=== PATIENT | female | born 1975 | race African-American/Black ===

== ENCOUNTER 2017-05-23 00:06 | Emergency (ER) | payer MEDICAID, OTHER ==
[~2017-05-23] VITALS: Ht 170.2 cm; Wt 104.5 kg
[2017-05-23] MEDS ORDERED: KETOROLAC 30MG/ML VIAL IM ONE (01:15)
[2017-05-23 02:05] VITALS: BP 140/89
== END 2017-05-23 02:25 | disposition home or self-care (01) ==
LOC: ER 00:06
DX: M25.511 Pain in right shoulder (principal); I10 Essential (primary) hypertension; W01.0XXA Fall on same level from slipping, tripping and stumbling without subsequent striking against object, initial encounter; Y93.89 Activity, other specified; Y99.8 Other external cause status; Y92.89 Other specified places as the place of occurrence of the external cause; Z88.5 Allergy status to narcotic agent; Z88.6 Allergy status to analgesic agent
CPT/HCPCS: 73030; 96372; 99284; J1885; A4565